=== PATIENT | female | born 1960 | race Caucasian/White ===

== ENCOUNTER 2018-12-13 16:02 | Emergency (ER) | payer OTHER ==
[2018-12-13 16:13] VITALS: TEMP 97.9; BMI 18.6
[2018-12-13] MEDS ORDERED: SODIUM CHLORIDE 1,000 ML IV ONE (17:01)
[2018-12-13 17:05] LABS: HEMATOCRIT 41.2 % (32.4-45.2); HEMOGLOBIN 13.5 GM/dl (10.7-15.3); MCH 30.8 pg (25.7-33.7); MCHC 32.8 g/dl (32.0-36.0); MEAN CELL VOLUME 94.2 fl (80-96); PLATELET COUNT 171 K/MM3 (134-434); RBC 4.38 M/mm3 (3.60-5.2); RDW 13.2 % (11.6-15.6); WHITE BLOOD COUNT 4.3 K/mm3 (4.0-10.8)
[2018-12-13 17:14] VITALS: BP 130/78; PULSE 54
--- NOTE | 2018-12-13 17:16 | PDOC ---
History of Present Illness - History of Present Illness Initial Comments: 12/13/18 17:06 58F with pmh of IBS presents to the Ed with 1 week of progressive fatigue and mild nausea, culminating today with lightheadedness when she tried to stand up from laying position. She worked out for 45 min yesterday without difficulty. No recent weight loss, vomiting, diarrhea, chills, fever, dysuria. Has appointment with her PCP on and with Dr. 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 Has difficulty following her FODMAPS diet for her IBS. More frequent diarrhea episodes over the past month. <Mayito Shaw - Last Filed: 12/13/18 18:17> <Yrn Ponce - Last Filed: 12/13/18 18:36> - General Chief Complaint: Chest Pain Stated Complaint: chest heaviness,nausea,dizziness,low blood pressur Time Seen by Provider: 12/13/18 16:05 Past History - Past Medical History Anemia: No Asthma: No Cancer: No Cardiac Disorders: No CVA: No COPD: No CHF: No Dementia: No Diabetes: No GI Disorders: No Disorders: No HTN: No Hypercholesterolemia: No Liver Disease: No Seizures: No Thyroid Disease: No Other medical history: pt denies - Surgical History Abdominal Surgery: No Appendectomy: No Cardiac Surgery: No Cholecystectomy: No Lung Surgery: No Neurologic Surgery: No Orthopedic Surgery: No - Suicide/Smoking/Psychosocial Hx Smoking History: Never smoked Have you smoked in the past 12 months: No Hx Alcohol Use: No Drug/Substance Use Hx: No Substance Use Type: None <Mayito Shaw - Last Filed: 12/13/18 18:17> <Yrn Ponce - Last Filed: 12/13/18 18:36> - Past Medical History Allergies/Adverse Reactions: Allergies Allergy/AdvReac Type Severity Reaction Status Date / Time cephalexin monohydrate Allergy Severe Rash Verified 12/13/18 16:04 [From Keflex] Penicillins Allergy Severe Difficulty Verified 12/13/18 16:04 Breathing codeine [Codeine] AdvReac Severe Vomiting Verified 12/13/18 16:04 diphenhydramine HCl AdvReac Verified 12/13/18 16:04 [From Benadryl] Home Medications: Ambulatory Orders NK [No Known Home Medication] 12/13/18 Review of Systems - Review of Systems Able to Perform ROS?: Yes Is the patient limited Lithuanian proficient: No Constitutional: Yes: See HPI HEENTM: No: Symptoms Reported Respiratory: No: Symptoms reported Cardiac (ROS): No: Symptoms Reported ABD/GI: Yes: See HPI : No: Symptoms Reported Musculoskeletal: No: Symptoms Reported Integumentary: No: Symptoms Reported All Other Systems: Reviewed and Negative <Mayito Shaw - Last Filed: 12/13/18 18:17> *Physical Exam - Vital Signs Last Vital Signs Temp Pulse Resp BP Pulse Ox 97.9 F 63 18 147/90 100 12/13/18 16:03 12/13/18 16:03 12/13/18 16:03 12/13/18 16:03 12/13/18 16:03 - Physical Exam General Appearance: Yes: Nourished, Appropriately Dressed. No: Apparent Distress HEENT: positive: EOMI, SALLY, Normal ENT Inspection Respiratory/Chest: positive: Lungs Clear, Normal Breath Sounds. negative: Chest Tender, Respiratory Distress Cardiovascular: positive: Regular Rhythm, Regular Rate, S1, S2 Gastrointestinal/Abdominal: positive: Normal Bowel Sounds, Flat, Soft. negative : Tender Musculoskeletal: positive: Normal Inspection. negative: CVA Tenderness Extremity: positive: Normal Capillary Refill, Normal Inspection, Normal Range of Motion Integumentary: positive: Normal Color, Dry, Warm Neurologic: positive: Fully Oriented, Alert, Normal Mood/Affect, Normal Response , Motor Strength 5/5 <Mayito Shaw - Last Filed: 12/13/18 18:17> - Vital Signs Last Vital Signs Temp Pulse Resp BP Pulse Ox 97.9 F 54 L 18 130/78 100 12/13/18 16:03 12/13/18 17:13 12/13/18 16:03 12/13/18 17:13 12/13/18 16:03 <Yrn Ponce - Last Filed: 12/13/18 18:36> ED Treatment Course - LABORATORY CBC & Chemistry Diagram: 12/13/18 16:40 12/13/18 16:40 <Mayito Shaw - Last Filed: 12/13/18 18:17> - LABORATORY CBC & Chemistry Diagram: 12/13/18 16:40 12/13/18 16:40 - ADDITIONAL ORDERS Additional order review: Laboratory Results 12/13/18 12/13/18 12/13/18 17:00 16:40 16:40 Sodium Potassium Chloride Carbon Dioxide Anion Gap BUN Creatinine Est GFR (CKD-EPI)AfAm Est GFR (CKD-EPI)NonAf Random Glucose Calcium Total Bilirubin AST ALT Alkaline Phosphatase Creatine Kinase 81 Troponin I < 0.03 Total Protein Albumin Urine Color Yellow Urine Appearance Clear Urine pH 7.5 Urine Protein Negative Urine Glucose (UA) Negative Urine Ketones Negative Urine Blood Trace-intact Urine Nitrite Negative Urine Bilirubin Negative Urine Urobilinogen 0.2 Ur Leukocyte Esterase Negative 12/13/18 16:40 Sodium 140 Potassium 4.2 Chloride 106 Carbon Dioxide 27 Anion Gap 7 L BUN 23.0 H Creatinine 0.8 Est GFR (CKD-EPI)AfAm 94.85 Est GFR (CKD-EPI)NonAf 81.84 Random Glucose 103 Calcium 9.3 Total Bilirubin 0.6 AST 23 ALT 23 Alkaline Phosphatase 64 Creatine Kinase Troponin I Total Protein 6.7 Albumin 4.1 Urine Color Urine Appearance Urine pH Urine Protein Urine Glucose (UA) Urine Ketones Urine Blood Urine Nitrite Urine Bilirubin Urine Urobilinogen Ur Leukocyte Esterase 12/13/18 16:40 RBC 4.38 MCV 94.2 MCHC 32.8 RDW 13.2 MPV 10.0 - RADIOLOGY Radiology Studies Ordered: Category Date Time Status CHEST PA & LAT [RAD] Stat Radiology 12/13/18 17:03 Taken - Medications Given in the ED: ED Medications Discontinued Medications Generic Name Dose Route Start Last Admin Trade Name Freq PRN Reason Stop Dose Admin Sodium Chloride 1,000 mls @ 1,000 mls/hr 12/13/18 17:01 12/13/18 17:03 Normal Saline - IV 12/13/18 18:00 1,000 mls/hr ONCE ONE Administration <Yrn Ponce - Last Filed: 12/13/18 18:36> Medical Decision Making - Medical Decision Making 12/13/18 18:05 metabolic vs anemia vs hypothyroidism vs cardiac vs orthostatic vs neoplastic? Will get basic labs, TSH, chest xray, UA, Giving patient NS bolus for hydration. Orthostatic vitals negative for orthostatic hypotension. All labs negative. 12/13/18 18:15 TSh pending but will call patient if abnormal. Will follow up with PCP and weigher alloy on . <Mayito Shaw - Last Filed: 12/13/18 18:17> *DC/Admit/Observation/Transfer - Discharge Dispostion Decision to Admit order: No <Mayito Shaw - Last Filed: 12/13/18 18:17> <Yrn Ponce - Last Filed: 12/13/18 18:36> Diagnosis at time of Disposition: Fatigue - Discharge Dispostion Disposition: HOME Condition at time of disposition: Stable - Referrals Schedule a call back: Let patient know if result is abnormal. Referrals: Rohan Russell MD [Primary Care Provider] - - Patient Instructions Printed Discharge Instructions: DI for Fatigue Additional Instructions: Come back to the emergency department for any new, worsening or concerning symptom. Follow up with Dr. Russell and Dr. Hines, at your next appointment on . - Post Discharge Activity Forms/Work/School Notes: Back to Work
--- NOTE | 2018-12-13 17:29 | PDOC ---
Attending Attestation - Resident Resident Name: Mayito Shaw - ED Attending Attestation I have performed the following: I have examined & evaluated the patient, The case was reviewed & discussed with the resident, I agree w/resident's findings & plan - HPI HPI: 12/13/18 17:25 58-year-old female with history of IBS presents with episode of lightheadedness/ near syncope today in the setting of 2 weeks of progressive fatigue and generalized weakness. Patient was in her usual state of health until about 2 weeks ago, when she began having IBS cramping with new symptoms of nausea but otherwise normal by mouth intake and normal bowel habits. 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 Russell, this week. In the setting, patient has noted intermittent fatigue requiring naps during the day over the weekend, slightly improved over the last 2 days allowing her to go to the gym without any difficulty, but this morning at work again felt generally fatigued, developed lightheadedness/near syncope with standing, so she presents for evaluation. No fever/chills, no weight loss/weight gain, normal diet, no new cough, no chest pain or dyspnea on exertion, no leg swelling or cramping, no urinary complaints. - Physicial Exam PE: 12/13/18 17:27 Vital signs normal, orthostatics normal Well-appearing thin woman lying in stretcher in no acute distress Pupils are equal round reactive to light, no palpable thyroid abnormalities Neck supple Heart is regular, lungs are clear Abdomen benign No edema/Tenderness Neurologically intact - Medical Decision Making 12/13/18 17:27 58-year-old female with history of IBS presents with nonspecific complaints of generalized fatigue and episode of lightheadedness with standing today. Differential is broad, no obvious etiology based on history/physical exam. Hemodynamically stable here, will perform basic and broad workup. Labs including TSH, troponin UA Chest x-ray EKG IV fluid hydration reassess 12/13/18 18:15 workup wnl, tsh is pending. trop negative, no anemia, no leukocytosis. ua clear. on my prelim review, cxr without acute pathology. feels well, received IV fluids, agrees with d/c plan and f/u with Dr. Russell on . Understands return criteria. Heart Score/ECG Review #1 General ECG Interpretation: Sinus Rhythm, Normal Rate (55), Normal Intervals ( qtc 457, rsr' qrs 90), No acute ischemic changes Compared to previous ECG there are: No significant change (c/w 10/2013)
[2018-12-13 17:39] LABS: ALBUMIN 4.1 g/dl (3.4-5.0); CALCIUM 9.3 mg/dl (8.5-10); CREATININE 0.8 mg/dl (0.55-1.3); POTASSIUM 4.2 mmol/L (3.5-5.1); TOT PROT 6.7 g/dl (6.4-8.2)
[2018-12-13 18:13] LABS: BILIRUBIN,TOTAL 0.6 mg/dl (0.2-1)
--- NOTE | 2018-12-14 11:49 | EKG ---
Test Reason : Blood Pressure : / mmHG Vent. Rate : 055 BPM Atrial Rate : 055 BPM P-R Int : 194 ms QRS Dur : 090 ms QT Int : 478 ms P-R-T Axes : 078 -20 077 degrees QTc Int : 457 ms SINUS BRADYCARDIA OTHERWISE NORMAL ECG WHEN COMPARED WITH ECG OF 26-OCT-2013 10:18, NONSPECIFIC T WAVE ABNORMALITY NOW EVIDENT IN LATERAL LEADS Confirmed by NILA LEACH, RYLEE ([id number]) on 12/14/2018 11:49:12 AM Referred By: DR ORTA Confirmed By:RYLEE DOTSON MD
== END 2018-12-13 18:38 | disposition home or self-care (01) ==
LOC: SUPCPDRO 16:02 → FER 16:02
PROC: 3E0337Z Introduction of Electrolytic and Water Balance Substance into Peripheral Vein, Percutaneous Approach (ICD-10-PCS; principal; 2018-12-13)
DX: R53.83 Other fatigue (principal)
CPT/HCPCS: 36415; 71046-TC-FY; 80053; 81003; 81015; 82550; 84443; 84484; 85027; 93005; 99285-25; J7030

== ENCOUNTER 2019-01-18 07:07 | Day surgery (SDC) | payer OTHER ==
[2019-01-17 16:47] VITALS: BMI 18.3
[2019-01-18] MEDS ORDERED: ACETAMINOPHEN INJECTION 100 ML IVPB ONE (09:06)
[2019-01-18] MEDS ORDERED: ACETAMINOPHEN 1000 MG/100 ML VIAL (NON FORMULARY) IVPB ONE (09:06)
[2019-01-18 09:22] VITALS: TEMP 97.8
[2019-01-18 09:24] VITALS: PULSE 55
[2019-01-18 12:24] VITALS: BP 112/68
--- NOTE | 2019-01-19 17:48 | PATH ---
Surgical Pathology Report Patient Name: POLLY BURGER [facility]. Rec. #: [id number] /Age/Gender: 1960 (Age: 58) / F Account: [id number] Location: ASU-ENDOSCOPY Taken: 01/18/2019 Received: 01/18/2019 Reported: 01/19/2019 Physicians: Williams Walsh M.D. Specimen(s) Received A: PROMIXAL TRANSVERSE COLON B: CECUM POLYP BX C: RIGHT COLON POLYP BX. D: SIGMOID POLYP BX Clinical History Screening colonoscope he, colon polyps, diverticula, redundant colon Final Diagnosis A. PROXIMAL TRANSVERSE COLON POLYPS, POLYPECTOMY: TUBULAR ADENOMA. SEPARATE COLONIC MUCOSA WITH REACTIVE LYMPHOID FOLLICLES IN THE LAMINA PROPRIA. B. CECUM POLYP, BIOPSY: COLONIC MUCOSA WITH REACTIVE LYMPHOID AGGREGATE. C. RIGHT COLON POLYP, BIOPSY: FRAGMENTS OF COLONIC MUCOSA WITH REACTIVE LYMPHOID FOLLICLE IN THE LAMINA PROPRIA. D. SIGMOID POLYP, BIOPSY: HYPERPLASTIC POLYP. Electronically Signed Ashlyn Coe M.D. Gross Description A. Received in formalin, labeled "proximal transverse colon polyps" are 5 concepcion, irregular portions of soft tissue measuring 0.2 to 0.3 cm. in greatest dimension. The specimens are submitted in toto in one cassette. B. Received in formalin, labeled "cecal polyp" is a concepcion, irregular portions of soft tissue measuring 0.3 cm. in greatest dimension. The specimens are submitted in toto in one cassette. C. Received in formalin, labeled "right colon polyp" are two concepcion, irregular portions of soft tissue measuring 0.3 cm. in greatest dimension. The specimens are submitted in toto in one cassette. D. Received in formalin, labeled "sigmoid polyp" is a concepcion, irregular portion of soft tissue measuring 0.3 cm. in greatest dimension. The specimens are submitted in toto in one cassette. __ KWS/01/18/2019 vern/01/18/2019
== END 2019-01-18 11:20 | disposition home or self-care (01) ==
LOC: JASU-ENDO 07:07
PROVIDERS: ATTEND Internal Medicine Gastroenterology
PROC: 0DBL8ZX Excision of Transverse Colon, Via Natural or Artificial Opening Endoscopic, Diagnostic (ICD-10-PCS; 2019-01-18)
PROC: 0DBN8ZX Excision of Sigmoid Colon, Via Natural or Artificial Opening Endoscopic, Diagnostic (ICD-10-PCS; 2019-01-18)
PROC: 0DBH8ZX Excision of Cecum, Via Natural or Artificial Opening Endoscopic, Diagnostic (ICD-10-PCS; 2019-01-18)
PROC: 0DBK8ZX Excision of Ascending Colon, Via Natural or Artificial Opening Endoscopic, Diagnostic (ICD-10-PCS; principal; 2019-01-18 08:00)
DX: Z12.11 Encounter for screening for malignant neoplasm of colon (principal); D12.2 Benign neoplasm of ascending colon; D12.3 Benign neoplasm of transverse colon; K63.5 Polyp of colon; K57.30 Diverticulosis of large intestine without perforation or abscess without bleeding; K64.8 Other hemorrhoids
CPT/HCPCS: 88305-TC; J0131

== ENCOUNTER 2021-08-07 05:07 | Day surgery (SDC) | payer OTHER ==
[2021-08-04 11:29] VITALS: BMI 18.6
[2021-08-07] MEDS ORDERED: MIDAZOLAM HCL 2 MG/2 ML SINGLE DOSE VIAL ONE (07:25)
[2021-08-07] MEDS ORDERED: PROPOFOL 20 ML ONE ×2 (07:25→07:56)
[2021-08-07] MEDS ORDERED: VANCOMYCIN 1,000 MG VIAL (RESTRICTED TO ID ONLY) IVPB ONE (07:55)
[2021-08-07] MEDS ORDERED: FUROSEMIDE 40 MG/4 ML INJECTABLE VIAL ONE (08:16)
[2021-08-07] MEDS ORDERED: LIDOCAINE HCL/PF 2% SDV 5ML VIAL ONE (08:16)
[2021-08-07] MEDS ORDERED: SEVOFLURANE 250 ML BTL ONE (08:16)
[2021-08-07] MEDS ORDERED: VANCOMYCIN 1,000 MG VIAL (RESTRICTED TO ID ONLY) ONE (08:16)
[2021-08-07] MEDS ORDERED: DEXAMETHASONE SOD PHOSPHATE 4 MG/1 ML VIAL ONE (08:16)
[2021-08-07] MEDS ORDERED: KETOROLAC TROMETHAMINE 30 MG/1 ML VIAL ONE (08:16)
[2021-08-07] MEDS ORDERED: IOHEXOL 300 MG/ML INFUS..BTL IJ ONE (08:25)
[2021-08-07] MEDS ORDERED: DEXTROSE 5%-0.45% SALINE 1,000 ML IV SCH (08:45)
[2021-08-07] MEDS ORDERED: ONDANSETRON 4 MG/2 ML VIAL IVPUSH PRN (09:01)
[2021-08-07] MEDS ORDERED: oxyCODONE HCL 5 MG TABLET PO PRN ×2 (09:01)
[2021-08-07] MEDS ORDERED: LACTATED RINGERS SOLUTION 1,000 ML IV SCH (09:15)
[2021-08-07] MEDS ORDERED: ACETAMINOPHEN INJECTION 100 ML IVPB ONE (10:01)
[2021-08-07] MEDS ORDERED: ACETAMINOPHEN 1000 MG/100 ML BAG IVPB ONE ×2 (10:02→10:42)
[2021-08-07 11:50] VITALS: BP 129/78; PULSE 65; TEMP 97.8
== END 2021-08-07 12:30 | disposition home or self-care (01) ==
LOC: JASU-SURG 05:07
PROVIDERS: ATTEND Urology
PROC: 0TB08ZX Excision of Right Kidney, Via Natural or Artificial Opening Endoscopic, Diagnostic (ICD-10-PCS; principal; 2021-08-07 07:30)
PROC: 0T9680Z Drainage of Right Ureter with Drainage Device, Via Natural or Artificial Opening Endoscopic (ICD-10-PCS; 2021-08-07 07:30)
PROC: 0T768DZ Dilation of Right Ureter with Intraluminal Device, Via Natural or Artificial Opening Endoscopic (ICD-10-PCS; 2021-08-07 07:30)
DX: C64.1 Malignant neoplasm of right kidney, except renal pelvis (principal)
CPT/HCPCS: 76000-TC-FY; 88305-TC; 94760